=== PATIENT | male | born 1980 | race Caucasian/White ===

== ENCOUNTER 2018-12-03 06:31 | Day surgery (SDC) | payer OTHER ==
[2018-12-03] VITALS (16 sets, daily range): BP systolic 128–176; BP diastolic 76–101; PULSE 42–56; RESP 9–37; Ht 180.3 cm; Wt 100.4 kg
[~2018-12-03] VITALS: Ht 180.3 cm; Wt 100.4 kg
[2018-12-03] MEDS ORDERED: ROCURONIUM 50 MG INJ ONE (07:00)
[2018-12-03] MEDS ORDERED: POLYMYXIN/BACITRACIN 1L IRRIG ONE (09:52)
--- NOTE | 2018-12-03 09:56 | PREAC ---
Date/Time of Note Date/Time of Note DATE: 12/03/18 TIME: 09:55 Anesthesia Eval and Record Evaluation Time Pre-Procedure Interview DATE: 12/03/18 TIME: 09:55 Age 38 Sex male NPO: 8 hrs Preoperative diagnosis left inguinal hernia repair Planned procedure open left inguinal hernia repair Past Medical History Past Medical History: Includes GI: Obesity Surgery & Anesthesia Issues No known issue Meds Anticoagulation: No Beta Sheryl within 24 hr: No Reason Beta Sheryl not given: Pt. not on B-Sheryl No Active Prescriptions or Reported Meds Meds reviewed: Yes Allergies Coded Allergies: No Known Allergy (Unverified , 12/03/18) Allergies Reviewed: Yes Labs/Studies Labs Reviewed: Reviewed by anesthesiologist test: N/A Pre-procedure Exam Last vitals Vital Signs Date Temp Pulse Resp B/P (MAP) Pulse Ox O2 O2 Flow FiO2 Time Delivery Rate 12/03/18 97.5 16 128/77 100 07:53 (94) Airway: Adequate mouth opening, Adequate thyromental dist Mallampati: Mallampati II Teeth: Normal Lung: Normal Heart: Normal ASA Physical Status ASA physical status: 2 Emergency: None Planned Anesthetic General/MAC: ETT Nerve block: TAP (left) Planned Pain Management Single shot nerve block, Parenteral pain med Pre-operative Attestations Prior to commencing anesthesia and surgery, the patient was re-evaluated, there was verification of: *The patient's identity *The results of appropriate recent lab work and preoperative vital signs *The above evaluation not changing prior to induction *Anesthetic plan, risk benefits, alternative and complications discussed with patient/family; questions answered; patient/family understands, accepts and wishes to proceed. OLIVER ANDINO MD Dec 03, 2018 09:56
[2018-12-03] MEDS ORDERED: DIPHENHYDRAMINE 50 MG INJ IV PRN (10:00)
[2018-12-03] MEDS ORDERED: MEPERIDINE 25 MG INJ IV PRN (10:00)
[2018-12-03] MEDS ORDERED: PROCHLORPERAZINE 10 MG INJ IV PRN (10:00)
[2018-12-03] MEDS ORDERED: OXYCODONE/ACETAMINOPHEN (5/325) TAB PO PRN (10:00)
[2018-12-03] MEDS ORDERED: FENTAnyl 50 MCG/ML VIAL IV PRN ×3 (10:00)
[2018-12-03] MEDS ORDERED: HYDROmorphONE 1 MG/5 ML IV SYRINGE IV PRN ×3 (10:00)
[2018-12-03] MEDS ORDERED: ONDANSETRON 4 MG INJ IV PRN (10:00)
[2018-12-03] MEDS ORDERED: MIDAZOLAM 1 MG/ML 2 ML INJ ONE (10:07)
[2018-12-03] MEDS ORDERED: FENTAnyl 50 MCG/ML VIAL ONE (10:07)
[2018-12-03] MEDS ORDERED: ROPIVACAINE 0.5 % 30 ML VIAL ONE (10:07)
[2018-12-03] MEDS ORDERED: SUCCINYLCHOLINE CHLORIDE 100 MG/5 ML SYG IV ONE (10:15)
[2018-12-03] MEDS ORDERED: PROPOFOL 40 ML ONE (10:15)
[2018-12-03] MEDS ORDERED: LIDOCAINE 2% (SDV) 5 ML INJ ONE (10:15)
[2018-12-03] MEDS ORDERED: CEFAZOLIN 1 GM INJ ONE (10:19)
[2018-12-03] MEDS ORDERED: DEXAMETHASONE 4 MG/ML 5 ML INJ ONE (10:27)
[2018-12-03] MEDS ORDERED: ONDANSETRON 4 MG INJ ONE (10:27)
[2018-12-03] MEDS ORDERED: GLYCOPYRROLATE 0.4 MG INJ ONE (10:55)
[2018-12-03] MEDS ORDERED: NEOSTIGMINE 3 MG/3 ML SYRINGE ONE (10:55)
[2018-12-03] MEDS ORDERED: KETOROLAC 30 MG INJ ONE (10:56)
[2018-12-03] MEDS ORDERED: LABETALOL HCL 20MG INJ ONE (10:58)
[2018-12-03] MEDS ORDERED: HYDROCODONE/APAP (5/325) TAB PO ONE (11:00)
--- NOTE | 2018-12-03 11:03 | OPR ---
Date/Time of Note Date/Time of Note DATE: 12/03/18 TIME: 11:01 Operative Report Procedure Date: Dec 03, 2018 Preoperative Diagnosis incarcerated left inguinal hernia Postoperative Diagnosis same Operation/Procedure Performed open left incarcerated inguinal hernia repair with ultrapro plug mesh Surgeon see signature line Sole Inker none Anesthesia Type: general Estimated Blood Loss: 0 - 10 ml's Transfusion none Specimen none Grafts/Implants none Complications none Pt Condition Post Procedure: stable Indications This is a 38-year-old male with an incarcerated left inguinal hernia. He requires surgical repair. Risks alternatives benefits and percent were discusse d the patient. Patient expresses understanding consents to the operation. Procedure Description Patient is taken to the OR and prepped and draped in usual sterile fashion. Surgical timeout was performed. IV antibiotics were given. Left inguinal oblique incision was made at the 10 blade. Dissection with cautery was carried onto the extremity fascia. Externally fascia was opened with a 15 blade. This incision was extended medial inferiorly lateral superiorly with Metzenbaum scissors. Cord structures identified and encircled with a [place] drain and retracted laterally. Inguinal hernia is identified and bolstered with the distal portion of the ultra pro hernia system mesh after the hernia was manually reduced. The disc is secured with a running 0 Prolene from the pubic tubercle along the shelving is unlimited. Superiorly the disc is secured to the internal bleed with interrupted Vicryl. Onlay mesh is secured in a similar fashion with a running 0 Prolene from the pubic tubercle along the shelving is unlimited. Straps are created reapproximate around the cord structures with interrupted 0 Prolene. Onlay mesh was secured to enter oblique with interrupted 3-0 Vicryl. Externally fascia was closed with running 3-0 Vicryl. Najma's fascia is closed with interrupted Vicryl. Skin was closed using a inPod Inns observable skin stapler. A tap block was provided by the anesthesiologist. Steri-Strips and dry dressings were applied. Nydia MINOR Dec 03, 2018 11:03
--- NOTE | 2018-12-03 11:21 | PAC ---
Date/Time of Note Date/Time of Note DATE: 12/03/18 TIME: 11:20 Post-Anesthesia Notes Post-Anesthesia Note Last documented vital signs Vital Signs Date Temp Pulse Resp B/P (MAP) Pulse Ox O2 O2 Flow FiO2 Time Delivery Rate 12/03/18 97.5 16 128/77 100 07:53 (94) Activity: WNL Respiratory function: WNL Cardiovascular function: WNL Mental status: Baseline Pain reasonably controlled: Yes Hydration appropriate: Yes Nausea/Vomiting absent: Yes Comments BP: 139/85 HR 90 RR: 15 T: 98 SaO2: 100% OLIVER ANDINO MD Dec 03, 2018 11:21
[2018-12-03] MEDS ORDERED: LABETALOL HCL 20MG INJ IV PRN (11:30)
[2018-12-03] MEDS ORDERED: hydrALAzine 20 MG INJ IV PRN (11:30)
== END 2018-12-03 12:59 | disposition home or self-care (01) ==
LOC: SDS 06:31
PROVIDERS: ATTEND Surgery
DX: K40.30 Unilateral inguinal hernia, with obstruction, without gangrene, not specified as recurrent (principal)
CPT/HCPCS: 49507; C1781; J0690; J1100; J1170; J1885; J2250; J2405; J2710; J2795; J3010; Z7512; Z7610